=== PATIENT | female | born 1990 | race African-American/Black ===

== ENCOUNTER 2017-02-08 15:33 | Emergency (ER) | payer MEDICAID ==
[~2017-02-08] VITALS: Ht 162.6 cm; Wt 65.5 kg
[2017-02-08 15:35] VITALS: BP 107/63
[2017-02-08] MEDS ORDERED: DIPH,PERTUSS(ACELL),TET VAC/PF 0.5 ML IM-VACC ONE ×2 (16:00→16:08)
[2017-02-08] MEDS ORDERED: FLUORESCEIN OPHTHALMIC 1 MG STRIP EACHEYE ONE (16:00)
[2017-02-08] MEDS ORDERED: PROPARACAINE OPHTH 0.5%, 15ML EACHEYE ONE (16:00)
[2017-02-08] MEDS ORDERED: PROPARACAINE OPHTH 0.5%, 15ML ONE (16:07)
[2017-02-08] MEDS ORDERED: FLUORESCEIN OPHTHALMIC 1 MG STRIP ONE (16:07)
== END 2017-02-08 16:42 | disposition home or self-care (01) ==
LOC: ED 16:25
DX: S11.95XA Open bite of unspecified part of neck, initial encounter (principal); S00.12XA Contusion of left eyelid and periocular area, initial encounter; S39.92XA Unspecified injury of lower back, initial encounter; Z23 Encounter for immunization; F17.210 Nicotine dependence, cigarettes, uncomplicated; Y04.1XXA Assault by human bite, initial encounter; Y93.89 Activity, other specified; Y99.8 Other external cause status; Y92.89 Other specified places as the place of occurrence of the external cause
CPT/HCPCS: 72072; 90471; 90715

== ENCOUNTER 2017-06-02 10:48 | Emergency (ER) | payer MEDICAID ==
[~2017-06-02] VITALS: Ht 157.5 cm; Wt 65.0 kg
[2017-06-02 10:53] VITALS: BP 120/76
[2017-06-02] MEDS ORDERED: ASPIRIN 81 MG TABLET CHEW PO ONE (13:30)
[2017-06-02 13:33] LABS: HEMOGLOBIN 13.8 g/dL (11.7-16.4); WHITE BLOOD COUNT 8.6 x10^3/uL (3.4-10)
[2017-06-02 13:46] LABS: BLOOD UREA NITROGEN 11 mg/dL (7-18)
[2017-06-02 13:51] LABS: ASPARTATE AMINO TRANSFERASE 14 U/L (15-37)
[2017-06-02 13:52] LABS: IS PT STATUS REG ER OR PRE ER? YES
[2017-06-02] MEDS ORDERED: ASPIRIN 81 MG TABLET CHEW ONE (13:52)
== END 2017-06-02 14:33 | disposition left against medical advice (07) ==
LOC: ED 13:45
DX: R07.89 Other chest pain (principal)
CPT/HCPCS: 36415; 71010; 80053; 84484; 85025; 85379; 93005; 99285